=== PATIENT | male | born 1985 | race African-American/Black ===

== ENCOUNTER 2017-04-26 13:30 | Emergency (ER) | payer MEDICAID ==
[~2017-04-26] VITALS: Ht 170.2 cm; Wt 113.4 kg
[2017-04-26] MEDS ORDERED: ZYPREXA5 MG ORAL (13:39)
[2017-04-26 14:17] VITALS: BP 106/63
[2017-04-26] MEDS ORDERED: IBUPROFEN600 MG ORAL (14:37)
[2017-04-26] MEDS ORDERED: TESSALON PERLE100 MG ORAL (14:37)
[2017-04-26 14:59] VITALS: BP 106/63
--- NOTE | 2017-04-26 15:04 | Emergency Room Report ---
History of Present Illness General Chief Complaint: Flu Like Symptoms Source: Patient Present Illness HPI 32-year-old male, no significant past medical history, presenting with, cough, runny nose for 4 days. Cough is productive with clear phlegm. Pt still eating/ drinking well. no sick contacts. No recent travel. No SOB, cp, abdominal pain, n /v/d. Allergies: Coded Allergies: No Known Allergies (Unverified , 04/26/17) Patient History Past Medical History: see triage record Past Surgical History: none Pertinent Family History: none Reviewed Nursing Documentation: PMH: Agreed, PSxH: Agreed Nursing Documentation-PMH Past Medical History: No Stated History Review of Systems All Other Systems: negative except mentioned in HPI Physical Exam Vital Signs Date Time Temp Pulse Resp B/P (MAP) Pulse Ox O2 Delivery O2 Flow Rate FiO2 04/26/17 13:35 97.4 67 18 106/63 96 Room Air 97.3 Sp02 EP Interpretation: reviewed, normal General Appearance: normal inspection, well appearing, no apparent distress, alert, GCS 15, non-toxic Head: normocephalic, atraumatic Eyes: bilateral eye normal inspection, bilateral eye PERRL, bilateral eye EOMI ENT: normal ENT inspection, normal pharynx, normal voice, moist mucus membranes Neck: normal inspection, full range of motion, supple Respiratory: normal inspection, lungs clear, normal breath sounds, no respiratory distress, no retraction, no wheezing, speaking full sentences, chest symmetrical Cardiovascular #1: normal inspection, regular rate, rhythm, no edema, normal capillary refill Cardiovascular #2: 2+ radial (R), 2+ radial (L) Gastrointestinal: normal inspection, non tender, soft, non-distended, no guarding Genitourinary: no CVA tenderness Musculoskeletal: normal inspection, back normal, normal range of motion, non- tender Neurologic: normal inspection, alert, oriented x3, responsive, motor strength/ tone normal, sensory intact, normal gait, speech normal Psychiatric: normal inspection, judgement/insight normal, memory normal Skin: normal inspection, normal color, no rash, warm/dry, well hydrated, normal turgor Medical Decision Making Diagnostic Impression: Primary Impression: Viral upper respiratory illness ER Course 32-year-old male, runny nose, cough Appears non- toxic, well hydrated, tolerating PO DDX: Viral URI / pneumonia , lungs are completely clear likely viral URI Plan: None in Emergency Room ER course: Pt stable in ED, remains nontoxic appearing, no sob. Tolerating PO Disposition: Patient discharged to home with Kurtis Mares and George Patient instructed to follow up with PMD in 1 week. Very strict return precautions discussed with patient such as intractable fever and chills, unable to eat or drink, severe chest pain or shortness of breath. Patient verbalized understanding and agrees with plan. Please note that this Emergency Department Report was dictated using [employer] support advisor technology software, occasionally this can lead to erroneous entry secondary to interpretation by the dictation equipment Last Vital Signs Date Time Temp Pulse Resp B/P (MAP) Pulse Ox O2 Delivery O2 Flow Rate FiO2 04/26/17 14:59 97.3 67 18 106/63 96 Room Air 97.3 Disposition: HOME, SELF-CARE Condition: Improved Scripts Benzonatate* (LICHASALFLORES PEÑA*) 100 Mg Capsule 100 MG ORAL THREE TIMES A DAY, #21 PERLE Prov: Elliot Reyna M.D. 04/26/17 Ibuprofen* (MOTRIN*) 600 Mg Tablet 600 MG ORAL Q8H Y for For Pain, #30 TAB 0 Refills Prov: Elliot Reyna M.D. 04/26/17 Referrals: NOT CHOSEN IPA/,REFERRING (PCP) Patient Instructions: Upper Respiratory Infection, Adult, [id number] Elliot Reyna M.D. Apr 26, 2017 15:04
== END 2017-04-26 14:53 | disposition home or self-care (01) ==
LOC: EMR 14:05
DX: J06.9 Acute upper respiratory infection, unspecified (principal); B97.89 Other viral agents as the cause of diseases classified elsewhere
CPT/HCPCS: 99284